=== PATIENT | female | born 1945 | race Caucasian/White ===

== ENCOUNTER 2019-11-15 18:08 | Outpatient (RCR) | payer MEDICARE, OTHER, SELFPAY | END 2019-11-24 23:59 | disposition home or self-care (01) | LOC: MPT 18:08 | PROVIDERS: Visit Provider Family Medicine | DX: N81.10 Cystocele, unspecified (principal) | CPT/HCPCS: 97110; 97140; 97161; 97530 ==

== ENCOUNTER 2019-11-25 06:00 | Outpatient (RCR) | payer MEDICARE, OTHER, SELFPAY | END 2019-12-23 23:59 | disposition home or self-care (01) | LOC: MPT 06:00 | PROVIDERS: Visit Provider Family Medicine | DX: N81.10 Cystocele, unspecified (principal) | CPT/HCPCS: 97110; 97140; 97530 ==

== ENCOUNTER 2019-12-24 06:00 | Outpatient (RCR) | payer MEDICARE, OTHER, SELFPAY | END 2020-01-23 23:59 | disposition home or self-care (01) | LOC: MPT 06:00 | PROVIDERS: Visit Provider Family Medicine | DX: N81.10 Cystocele, unspecified (principal) | CPT/HCPCS: 97140 ==

== ENCOUNTER → 2020-07-10 16:00 | Outpatient (BNVA) | payer MEDICARE, OTHER, SELFPAY | PROVIDERS: Visit Provider Family Medicine | DX: K62.5 Hemorrhage of anus and rectum (principal); Z13.1 Encounter for screening for diabetes mellitus; R03.0 Elevated blood-pressure reading, without diagnosis of hypertension; Z13.6 Encounter for screening for cardiovascular disorders; Z13.220 Encounter for screening for lipoid disorders | CPT/HCPCS: 80053; 80061; 85025 ==

== ENCOUNTER → 2021-05-07 14:02 | Outpatient (BNVA) | payer MEDICARE, OTHER, SELFPAY | PROVIDERS: Referring Provider Family Medicine; Visit Provider Specialist | DX: M25.511 Pain in right shoulder (principal) | CPT/HCPCS: 73030 ==

== ENCOUNTER 2021-05-16 09:57 | Outpatient (CLI) | payer MEDICARE, OTHER, SELFPAY ==
--- NOTE | 2021-05-16 10:14 | MR_ITS ---
WS: [id number] MRI RIGHT SHOULDER NONCONTRAST TECHNIQUE: Sagittal T2, coronal T1, T2 and proton density imaging. Axial gradient PDE imaging. CLINICAL INFORMATION: M25.519 - Pain in unspecified shoulder COMPARISON: None. FINDINGS: Moderate degenerative arthritis at the AC joint. Mild soft tissue edema. Small amount of subacromial/ subdeltoid fluid. Mild downsloping of the acromion with subacromial spurring. Impingement on the dist al supraspinatus with chronic thinning. Tendinopathy distal supraspinatus with small intrasubstance a nd bursal surface tear. Normal infraspinatus. Normal subscapularis. Normal teres minor. Normal biceps tendon in the bicipital groove. Normal intra- articular biceps tendon. Glenoid labrum appears grossly normal. Normal bone marrow signal in the jose favio and glenoid. MR/MR shoulder RT wo con* [id number] IMPRESSION: 1. Moderate degenerative arthritis AC joint with mild downsloping acromion. Damico bacromial spurring with impingement on the distal supraspinatus. 2. Tendinopathy within distal supraspinatus with a tiny bursal surface and int rasubstance tear. 3. Rotator cuff is otherwise normal. 4. Small to moderate subacromial/subdeltoid effusion. 5. Normal intra-articular biceps tendon. Normal biceps tendon in the bicipital groove.
== END 2021-05-16 09:58 | disposition home or self-care (01) ==
LOC: RADWPI 09:57
PROVIDERS: PCP Family Medicine; Visit Provider Specialist
DX: M19.011 Primary osteoarthritis, right shoulder (principal); M25.411 Effusion, right shoulder
CPT/HCPCS: 73221

== ENCOUNTER → 2021-06-19 10:33 | Outpatient (BNVA) | payer MEDICARE, OTHER, SELFPAY | PROVIDERS: PCP Family Medicine; Visit Provider Family Medicine | DX: I10 Essential (primary) hypertension (principal); K21.9 Gastro-esophageal reflux disease without esophagitis; K58.2 Mixed irritable bowel syndrome; K92.1 Melena; H92.01 Otalgia, right ear; G89.29 Other chronic pain; J30.1 Allergic rhinitis due to pollen; M19.90 Unspecified osteoarthritis, unspecified site; J30.9 Allergic rhinitis, unspecified; J44.9 Chronic obstructive pulmonary disease, unspecified; M77.8 Other enthesopathies, not elsewhere classified; H65.193 Other acute nonsuppurative otitis media, bilateral; K59.1 Functional diarrhea | CPT/HCPCS: 80053; 80061; 85025 ==

== ENCOUNTER → 2021-07-24 15:56 | Outpatient (BNVA) | payer MEDICARE, OTHER, SELFPAY | PROVIDERS: PCP Family Medicine; Visit Provider Internal Medicine | DX: Z01.812 Encounter for preprocedural laboratory examination (principal); Z20.822 Contact with and (suspected) exposure to COVID-19 | CPT/HCPCS: 87635 ==

== ENCOUNTER 2021-07-28 08:30 | Day surgery (SDC) | payer MEDICARE, OTHER, SELFPAY ==
[2021-07-24 14:44] VITALS: BMI 27.3
[2021-07-28 08:58] VITALS: BP 129/62; PULSE 75; RESP 18; TEMP 36.7; O2SAT 96
--- NOTE | 2021-07-28 09:09 | ANES.PREANE2 ---
Pre-Anesthetic Assessment Pre-Anesthetic Assessment: Height/Weight: Height 1.52 m Weight 63.503 kg Preop Diagnosis: Hematochezia Proposed Procedure: Operation Date: 07/28/21 09:45 Proposed Procedures p EGD/colon(Not Applicable) - Roberto Damian MD s Colonoscopy(Not Applicable) - Roberto Damian MD Was Beta Kristine taken within 24 hours: N/A Was Clonidine taken within 24 hours: N/A Social: Social History: No alcohol and No tobacco Exam: Pre-Anes Outpt Exam: alert, oriented x 3, clear to auscultation bilaterally and regular rate & rhythm Airway: Submandibular: WNL Cervical ROM: WNL MP: 2 Dentition: Chipped GI: GI: GERD Musc/skel: Musc/skel: OA/DJD Anesthetic Plan: ASA status: 2 Anesthesia: MAC Risk of > 500 ml blood loss (7ml/kg in children): No PFSH Anesthesia PFSH: Medical History (Updated 07/14/21 @ 14:33 by Roberto Damian MD) Allergic rhinitis Constipation, chronic Osteoarthritis Vaginal prolapse Surgical History H/O section Family History Mother Stroke Hyperlipidemia Other Cancer Social History Smoking and tobacco status: former smoker Quit status (tobacco): has quit using tobacco Former quit date comment: STOPPED AT AGE 32 Second hand smoke exposure: No Alcohol intake: current Alcohol intake frequency: 0-2 Drinks per Day Alcohol type: wine Current gender identity: Female Female Reproductive History: Para: 3 Spontaneous abortions: No Data Anesthesia Cardiac Studies: No Data to Display
--- NOTE | 2021-07-28 09:12 | P.HP_ITS ---
Same Day Surgery H&P Indication for Procedure/HPI DATE OF PROCEDURE: July 28, 2021 CHIEF COMPLAINT/INDICATIONFOR SURGICAL PROCEDURE: Abdominal pain and bloody stool. PREOP DIAGNOSIS: Hematochezia PLANNED PROCEDRUE: Operation Date: 07/28/21 09:45 Proposed Procedures p EGD/colon(Not Applicable) - Roberto Damian MD s Colonoscopy(Not Applicable) - Roberto Damian MD Medications/Allergies* Home Medications Medication Instructions Recorded Confirmed Type omega-3 fatty acids 1,000 mg 1,000 mg PO BID 07/12/21 07/28/21 History capsule calcium carbonate-vitamin D2 1 tab PO DAILY 07/24/21 07/28/21 History [Calcium + Vitamin D] pantoprazole [Protonix] 40 mg PO DAILY PRN 07/24/21 07/28/21 History Allergies/Adverse Reactions Allergy/AdvReac Type Severity Reaction Status Date / Time Anesthetics - Amide Type - AdvReac Unknown UNKNOWN Verified 07/24/21 14:22 Select A [Anesthetics - Amide Type] Pertinent History/Comorbid Conditions* Medical History (Updated 07/14/21 @ 14:33 by Roberto Damian MD) Allergic rhinitis Constipation, chronic Osteoarthritis Vaginal prolapse Surgical History (Updated 11/13/19 @ 11:43 by Hiwot Caicedo MD) H/O section Family History (Updated 11/13/19 @ 11:31 by Anika Martel LPN) Hyperlipidemia Mother Cancer Stroke Mother Social History Smoking and tobacco status: former smoker Quit status (tobacco): has quit using tobacco Former quit date comment: STOPPED AT AGE 32 Second hand smoke exposure: No Alcohol intake: current Alcohol intake frequency: 0-2 Drinks per Day Alcohol type: wine Current gender identity: Female Pertinent Exam Findings alert, oriented x 3, clear to auscultation bilaterally, regular rate & rhythm, operative site marked and procedure specific exam findings Recommendations Surgery/Procedure today Coding Level of Care Code 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
[2021-07-28] MEDS: sodium chloride 0.9% 1,000 ML 30 ML IV (09:37)
[2021-07-28 10:43] VITALS: BP 129/73; PULSE 60; RESP 16; TEMP 36.1; O2SAT 94
[2021-07-28 10:57] VITALS: BP 112/68; PULSE 65; RESP 16; O2SAT 97
--- NOTE | 2021-07-28 10:58 | PM.PACU ---
PACU note Post-Anesthesia Exam: awake and vital signs stable Disposition: discharged
[2021-07-29 11:27] LABS: H. Pylori / CLO Test Negative
== END 2021-07-28 11:24 | disposition home or self-care (01) ==
PROVIDERS: PCP Family Medicine; Visit Provider Internal Medicine
PROC: 0DJ08ZZ Inspection of Upper Intestinal Tract, Via Natural or Artificial Opening Endoscopic (ICD-10-PCS; CPT 43235; principal; 2021-07-28 09:45)
PROC: 0DJD8ZZ Inspection of Lower Intestinal Tract, Via Natural or Artificial Opening Endoscopic (ICD-10-PCS; CPT 45378; 2021-07-28 09:45)
DX: K92.1 Melena (principal); M19.90 Unspecified osteoarthritis, unspecified site; Z82.49 Family history of ischemic heart disease and other diseases of the circulatory system; Z82.3 Family history of stroke; Z87.891 Personal history of nicotine dependence; K29.70 Gastritis, unspecified, without bleeding; K21.9 Gastro-esophageal reflux disease without esophagitis
CPT/HCPCS: 43239; 45378; 87077; 96360; J2704; J7030

== ENCOUNTER 2021-11-20 08:29 | Outpatient (CLI) | payer MEDICARE, SELFPAY ==
--- NOTE | 2021-11-20 08:45 | US_ITS ---
WS: [id number] RIGHT UPPER QUADRANT ULTRASOUND HISTORY: RUQ pain, diarrhea after eating pizza. COMPARISON: None available. Liver: 15.3 cm in length. Normal size liver. No bile duct dilatation or mass. Portal Vein: Normal hepatopetal flow with monophasic waveform. Gallbladder: Normally distended gallbladder. There are multiple stones within the gallbladder. Larges t collection of stones measures 4.0 x 1.4 cm. No wall thickening or pericholecystic fluid. CBD: 0.4 cm Pancreas: Normal size and echogenicity. Right kidney: 7.5 cm in length. Normal size and echogenicity. No hydronephrosis or mass. Aorta and IVC: Unremarkable abdominal aorta and IVC. No ascites. US/US gall bladder [id number] IMPRESSION: 1. Cholelithiasis. Multiple stones are present in the gallbladder. No evidence for acute cholecystitis at this time. 2. No bile duct dilatation.
== END 2021-11-20 08:30 | disposition home or self-care (01) ==
LOC: RAD 08:34
PROVIDERS: PCP Family Medicine; Visit Provider Internal Medicine
DX: K52.9 Noninfective gastroenteritis and colitis, unspecified (principal); R10.11 Right upper quadrant pain; K80.20 Calculus of gallbladder without cholecystitis without obstruction
CPT/HCPCS: 76705

== ENCOUNTER → 2022-02-20 14:16 | Outpatient (BNVA) | payer MEDICARE, SELFPAY | PROVIDERS: PCP Family Medicine; Referring Provider Family Medicine; Visit Provider Surgery | DX: K80.20 Calculus of gallbladder without cholecystitis without obstruction (principal); K52.9 Noninfective gastroenteritis and colitis, unspecified | CPT/HCPCS: 99204 ==

== ENCOUNTER → 2022-07-20 09:46 | Outpatient (BNVA) | payer MEDICARE, SELFPAY | PROVIDERS: PCP Family Medicine; Visit Provider Family Medicine | DX: Z78.0 Asymptomatic menopausal state (principal); I10 Essential (primary) hypertension; Z13.220 Encounter for screening for lipoid disorders; Z13.6 Encounter for screening for cardiovascular disorders; Z00.00 Encounter for general adult medical examination without abnormal findings; Z13.820 Encounter for screening for osteoporosis; Z12.31 Encounter for screening mammogram for malignant neoplasm of breast; Z13.1 Encounter for screening for diabetes mellitus; Z71.89 Other specified counseling; K21.9 Gastro-esophageal reflux disease without esophagitis; M15.0 Primary generalized (osteo)arthritis; M54.50 Low back pain, unspecified; M25.551 Pain in right hip; M25.552 Pain in left hip | CPT/HCPCS: 72100; 73523; 80053; 80061 ==

== ENCOUNTER → 2023-04-23 11:26 | Outpatient (BNVA) | payer MEDICARE, SELFPAY | PROVIDERS: PCP Family Medicine; Visit Provider Family Medicine | DX: M54.16 Radiculopathy, lumbar region (principal); M85.88 Other specified disorders of bone density and structure, other site | CPT/HCPCS: 72100 ==

== ENCOUNTER 2023-05-03 06:00 | Outpatient (RCR) | payer MEDICARE, SELFPAY | END 2023-05-24 23:59 | disposition home or self-care (01) | LOC: MPT 06:00 | PROVIDERS: PCP Family Medicine; Visit Provider Family Medicine | DX: M54.50 Low back pain, unspecified (principal); G89.29 Other chronic pain | CPT/HCPCS: 97110; 97140; 97162 ==

== ENCOUNTER 2023-05-25 06:00 | Outpatient (RCR) | payer MEDICARE, SELFPAY | END 2023-06-24 23:59 | disposition home or self-care (01) | LOC: MPT 06:00 | PROVIDERS: PCP Family Medicine; Visit Provider Family Medicine | DX: M54.50 Low back pain, unspecified (principal); G89.29 Other chronic pain | CPT/HCPCS: 97110; 97140; 97530; G0283 ==

== ENCOUNTER → 2023-06-01 10:49 | Outpatient (BNVA) | payer MEDICARE, SELFPAY | PROVIDERS: PCP Family Medicine; Visit Provider Orthopaedic Surgery | DX: M54.16 Radiculopathy, lumbar region (principal); M43.16 Spondylolisthesis, lumbar region | CPT/HCPCS: 72110; 99204 ==

== ENCOUNTER → 2023-06-17 12:54 | Outpatient (BNVA) | payer MEDICARE, SELFPAY | PROVIDERS: PCP Family Medicine; Visit Provider Nurse Practitioner Family | DX: M54.50 Low back pain, unspecified (principal) | CPT/HCPCS: 72100 ==

== ENCOUNTER 2023-06-25 14:30 | Outpatient (CLI) | payer MEDICARE, SELFPAY ==
--- NOTE | 2023-06-25 14:45 | US_ITS ---
WS: [id number] US pelv w/transvag [id number] HISTORY: R10.84 - Generalized abdominal pain COMPARISON: None available. Uterus: 5.7 cm x 3.2 cm x 2.2 cm. Normal size anteverted uterus. No fibroid or mass. Endometrium: 0.2 cm. Atrophic, normal for age. Right ovary: 1.4 cm x 1.2 cm x 1.5 cm. Normal size and vascularity, no cystic or solid masses. Left ovary: 1.5 cm x 1.0 cm x 1.3 cm. Normal size and vascularity, no cystic or solid masses. No free fluid in the cul-de-sac. IMPRESSION: Normal transvaginal and transabdominal pelvic ultrasound for age.
== END 2023-06-25 14:31 | disposition home or self-care (01) ==
PROVIDERS: PCP Family Medicine; Visit Provider Nurse Practitioner Family
DX: Z12.31 Encounter for screening mammogram for malignant neoplasm of breast (principal)
CPT/HCPCS: 76830; 76856

== ENCOUNTER → 2023-07-08 10:12 | Outpatient (BNVA) | payer MEDICARE, SELFPAY | PROVIDERS: PCP Family Medicine; Visit Provider Orthopaedic Surgery | DX: M54.16 Radiculopathy, lumbar region (principal); M43.16 Spondylolisthesis, lumbar region; M48.061 Spinal stenosis, lumbar region without neurogenic claudication | CPT/HCPCS: 99214 ==

== ENCOUNTER 2023-08-03 15:53 | Outpatient (CLI) | payer MEDICARE, SELFPAY ==
--- NOTE | 2023-08-03 16:00 | MR_ITS ---
WS: [id number] MRI LUMBAR SPINE NONCONTRAST TECHNIQUE: Sagittal T1, T2 and STIR imaging. Axial T1 and T2 imaging. CLINICAL INFORMATION: lumbar pain COMPARISON: None. FINDINGS: Mild lumbar curve. No acute compression. Grade 1 anterolisthesis L4 on L5. Chronic appearing bony fus ion or segmentation anomaly the cervical spine at C4-5. Mild central canal stenosis in the mid cervic al spine C4-C6. Thoracic kyphosis. L1-L2: Normal. L2-L3: Mild annular bulging. Mild facet arthropathy. Mild LEFT foraminal narrowing. L3-L4: Mild annular bulging. Mild central canal stenosis with impingement on the RIGHT subarticular r ecess and traversing RIGHT L4 nerve root. Mild LEFT foraminal narrowing. Mild facet arthropathy. L4-L5: Grade 1 anterolisthesis L4 on L5 measuring 4.4 mm. Severe central canal stenosis with impingem ent of traversing L5 nerve roots bilaterally. Moderate facet arthropathy ligamentum flavum hypertroph y. Mild RIGHT foraminal narrowing. LEFT foramen is patent. L5-S1: Mild annular bulging. Moderate facet arthropathy. Spinal canal and foramen are patent. Visualized pelvic bony structures: Normal. Paravertebral soft tissues: Normal. IMPRESSION: 1. Grade 1 anterolisthesis L4 on L5 with severe central canal stenosis. Moderate facet arthropathy a nd ligamentum flavum hypertrophy at this level. 2. Mild central canal stenosis L3-4 with impingement on the RIGHT subarticular recess and traversing RIGHT L4 nerve root. 3. Mild foraminal narrowing LEFT L3-4 and RIGHT L4-5. 4. Moderate facet arthropathy L5-S1.
== END 2023-08-03 15:54 | disposition home or self-care (01) ==
PROVIDERS: PCP Family Medicine; Visit Provider Orthopaedic Surgery
DX: M54.16 Radiculopathy, lumbar region (principal); M48.061 Spinal stenosis, lumbar region without neurogenic claudication; M47.817 Spondylosis without myelopathy or radiculopathy, lumbosacral region
CPT/HCPCS: 72148

== ENCOUNTER → 2023-08-10 11:06 | Outpatient (BNVA) | payer MEDICARE, SELFPAY | PROVIDERS: PCP Family Medicine; Visit Provider Family Medicine | DX: K21.9 Gastro-esophageal reflux disease without esophagitis (principal); I10 Essential (primary) hypertension; M19.90 Unspecified osteoarthritis, unspecified site; J30.1 Allergic rhinitis due to pollen; Z13.220 Encounter for screening for lipoid disorders; Z13.6 Encounter for screening for cardiovascular disorders; M54.16 Radiculopathy, lumbar region; M85.89 Other specified disorders of bone density and structure, multiple sites; Z28.21 Immunization not carried out because of patient refusal | CPT/HCPCS: 80053; 80061 ==

== ENCOUNTER → 2023-09-02 13:47 | Outpatient (BNVA) | payer MEDICARE, SELFPAY | PROVIDERS: PCP Family Medicine; Visit Provider Orthopaedic Surgery | DX: M43.16 Spondylolisthesis, lumbar region | CPT/HCPCS: 99214 ==

== ENCOUNTER → 2024-02-09 14:13 | Outpatient (BNVA) | payer MEDICARE, SELFPAY | PROVIDERS: PCP Family Medicine; Visit Provider Family Medicine | DX: M81.0 Age-related osteoporosis without current pathological fracture (principal); I10 Essential (primary) hypertension; M85.89 Other specified disorders of bone density and structure, multiple sites; M85.80 Other specified disorders of bone density and structure, unspecified site; J30.1 Allergic rhinitis due to pollen; K21.9 Gastro-esophageal reflux disease without esophagitis; M19.90 Unspecified osteoarthritis, unspecified site; M15.0 Primary generalized (osteo)arthritis; F33.0 Major depressive disorder, recurrent, mild | CPT/HCPCS: 80048 ==

== ENCOUNTER → 2024-06-30 10:13 | Outpatient (BNVA) | payer MEDICARE, SELFPAY | PROVIDERS: PCP Family Medicine; Referring Provider Nurse Practitioner; Visit Provider Nurse Practitioner | DX: R19.7 Diarrhea, unspecified (principal) | CPT/HCPCS: 87045; 87177; 87209; 87427; 87449 ==

== ENCOUNTER → 2024-08-08 11:51 | Outpatient (BNVA) | payer MEDICARE, SELFPAY | PROVIDERS: PCP Family Medicine; Visit Provider Family Medicine | DX: I10 Essential (primary) hypertension (principal) | CPT/HCPCS: 80053; 80061 ==

== ENCOUNTER → 2024-10-04 10:05 | Outpatient (BNVA) | payer MEDICARE, SELFPAY | PROVIDERS: PCP Family Medicine; Visit Provider Family Medicine | DX: K58.2 Mixed irritable bowel syndrome; R10.9 Unspecified abdominal pain; T14.8XXA Other injury of unspecified body region, initial encounter; W57.XXXA Bitten or stung by nonvenomous insect and other nonvenomous arthropods, initial encounter | CPT/HCPCS: 86003; 86008 ==

== ENCOUNTER → 2024-12-27 14:35 | Outpatient (BNVA) | payer MEDICARE, SELFPAY | PROVIDERS: PCP Family Medicine; Visit Provider Family Medicine | DX: I10 Essential (primary) hypertension (principal) | CPT/HCPCS: 80053 ==

== ENCOUNTER → 2025-05-01 11:43 | Outpatient (BNVA) | payer MEDICARE, SELFPAY | PROVIDERS: PCP Family Medicine; Visit Provider Family Medicine | DX: M25.552 Pain in left hip (principal); M19.011 Primary osteoarthritis, right shoulder | CPT/HCPCS: 73030; 73502 ==

== ENCOUNTER → 2025-06-27 13:37 | Outpatient (BNVA) | payer MEDICARE, SELFPAY | PROVIDERS: PCP Family Medicine; Visit Provider Family Medicine | DX: I10 Essential (primary) hypertension (principal) | CPT/HCPCS: 80048; 80061 ==